=== PATIENT | male | born 1960 ===

== ENCOUNTER 2016-09-16 03:15 | Emergency (ER) | payer OTHER ==
[2016-09-16] MEDS ORDERED: Cephalexin 500 MG Cap ONE (03:30)
[2016-09-16] MEDS ORDERED: Diphtheria,Pertussis(Acell),Tetanus Vaccine 0.5 ML SDV inactive IM ONE (04:15)
--- NOTE | 2016-09-16 12:11 | ER ---
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 The patient was sleeping at their cabin on the top bunk. He was going to get up to go to the bathroom. He fell off the top bunk and hit his head on the framework of the bed below him. He sustained a laceration to the forehead, left side. They were holding pressure to the area for several minutes before they decided to bring him in. This happened in the [facility]. The patient did not get knocked out. He has not been vomiting. He states that other than pain and bleeding, he feels clear-headed and he is not on any blood thinners. OBJECTIVE: GENERAL APPEARANCE: The patient is awake and alert. No obvious respiratory distress. HEENT: Examining the patient's forehead reveals a laceration on the left side of the forehead that is about 4 cm in length, it is full-thickness. There was no active bleeding or drainage at this time. The wound edges are clean and sharp. Pupils equal, round, and reactive to light. EOMs are intact. NECK: Supple. Further physical exam deferred. DIAGNOSIS: Laceration to scalp. TREATMENT PLAN: Nursing staff had already cleansed the area well. I anesthetized the wound with 1% lidocaine with epi after which I established a sterile field and the wound was repaired using sutures. It required six sutures of 4-0 Ethilon. The patient tolerated the procedure fairly well. He had some discomfort but did not want any further anesthesia. After the suturing was finished, I had the patient stand and walk around the exam room, and he was able to walk smoothly. He is clear-headed and is not having any pain at this time at all. POST-CARE INSTRUCTIONS: Antibiotic ointment and a dressing was applied by nursing staff. The patient is to keep the wound clean for 3 to 4 days with the dressing. He can change the initial dressing in 24 hours, sooner if it gets wet or soiled. I advised the patient that he can bathe, but I do not want this area to be soaked with water for at least 2 days, minimal water exposure to the laceration in the first 48 hours. I will give the patient Keflex for 3 days and a Tdap was given tonight as well. [id number] meds should be used as needed and activity should be as tolerated for the next 24 hours and increase as his symptoms should be rapidly improving. He tells me that they are only here for 1 more day and then they will be going back home which is in [place]. FELICIANO/KAN /[id number]
== END 2016-09-16 04:35 | disposition home or self-care (01) ==
LOC: LB.ED 03:15
DX: S01.81XA Laceration without foreign body of other part of head, initial encounter (principal); W22.8XXA Striking against or struck by other objects, initial encounter
CPT/HCPCS: 12013; 90715; 99283; A9270